=== PATIENT | female | born 1970 | race Caucasian/White ===

== ENCOUNTER 2021-01-04 23:00 | Emergency (ER) | payer OTHER ==
--- NOTE | 2021-01-05 00:45 | ED Physician Documentation ---
PD HPI CHEST PAIN - Stated complaint Stated Complaint: L SHOULDER/ARM PX - Chief complaint Chief Complaint: General - History obtained from History obtained from: Patient - History of Present Illness Timing - onset: Enter time (18:00) Timing - onset during: Rest Timing - details: Gradual onset Pain level now: 6 Quality: Sharp, Pain Location: Left shoulder/arm Improved by: Rest, Other (supporting the left shoulder) Worsened by: Exertion, Movement, Palpation Associated symptoms: No: Shortness of air, Diaphoresis, Nausea, Vomiting Similar symptoms before: Has not had sx before Recently seen: Not recently seen - Additional information Additional information: c/o left shoulder pain since 6 PM today, onset while at rest. pain is worse with movement of left shoulder as well as when it is unsupported (while standing or walking). she took aspirin and skelaxin without improvement. PD PAST MEDICAL HISTORY - Past Medical History Past Medical History: No - Past Surgical History Ortho: Rotator cuff repair (left) - Present Medications Home Medications: Ambulatory Orders Medication Instructions Recorded Confirmed Cyclobenzaprine [Flexeril] 10 mg PO TID PRN #20 tablet 01/05/21 HYDROcod/ACETAM 5/325 [Iva 5/325] 1 - 2 tablet PO Q6H PRN #14 tablet 01/05/21 - Allergies Allergies/Adverse Reactions: Allergies Allergy/AdvReac Type Severity Reaction Status Date / Time Sulfa (Sulfonamide AdvReac Unknown Verified 01/04/21 23:13 Antibiotics) - Social History Does the pt smoke?: No Smoking Status: Never smoker Does the pt drink ETOH?: No Does the pt have substance abuse?: No - POLST Patient has POLST: No PD ED PE NORMAL - Vitals Vital signs reviewed: Yes - General General: Alert and oriented X 3, No acute distress, Well developed/nourished - HEENT HEENT: Moist mucous membranes - Neck Neck: Supple, no meningeal sign - Cardiac Cardiac: RRR, No murmur, No gallop, No rub, Strong equal pulses - Respiratory Respiratory: No respiratory distress, Clear bilaterally - Abdomen Abdomen: Soft, Non tender - Derm Derm: Normal color, Warm and dry PD ED PE EXPANDED - Extremities Extremities: Tenderness (left anterior shoulder at AC joint. pain is reproduced with linear compaction pressure against flexed elbow directed up humerus towards glenohumeral joint), Motor intact, Sensory intact, Vascular intact Results - Vitals Vitals: Oxygen O2 Source Room air - EKG (time done) No standard instances Rate: Rate (enter#) (90) Rhythm: NSR [place]: Normal Intervals: Normal MI QRS: Normal Ischemia: Normal ST segments - Labs Labs: Laboratory Tests 01/05/21 01/05/21 01/05/21 01:02 01:02 01:02 WBC 10.6 RBC 4.69 Hgb 11.2 L Hct 35.8 L MCV 76.3 L MCH 23.9 L MCHC 31.3 L RDW 14.8 Plt Count 230 MPV 10.7 Neut # (Auto) 7.1 H Lymph # (Auto) 2.3 [place] # (Auto) 0.9 Eos # (Auto) 0.2 Baso # (Auto) 0.1 Absolute Nucleated RBC 0.00 Nucleated RBC % 0.0 D-Dimer Sodium 137 Potassium 4.0 Chloride 105 Carbon Dioxide 21 Anion Gap 11.0 BUN 15 Creatinine 0.7 Estimated GFR (MDRD) 89 Glucose 115 H Calcium 8.6 Total Bilirubin 0.7 AST 20 ALT 17 Alkaline Phosphatase 57 Troponin I High Sens < 2.3 L Total Protein 7.4 Albumin 4.3 Globulin 3.1 Albumin/Globulin Ratio 1.4 Lipase 45 01/05/21 01:02 WBC RBC Hgb Hct MCV MCH MCHC RDW Plt Count MPV Neut # (Auto) Lymph # (Auto) [place] # (Auto) Eos # (Auto) Baso # (Auto) Absolute Nucleated RBC Nucleated RBC % D-Dimer 209.3 Sodium Potassium Chloride Carbon Dioxide Anion Gap BUN Creatinine Estimated GFR (MDRD) Glucose Calcium Total Bilirubin AST ALT Alkaline Phosphatase Troponin I High Sens Total Protein Albumin Globulin Albumin/Globulin Ratio Lipase - Rads (name of study) chest xray Radiology: Prelim report reviewed, See rad report PD MEDICAL DECISION MAKING - ED course Complexity details: reviewed results, re-evaluated patient, considered differential, d/w patient Departure - Departure Disposition: 01 Home, Self Care Clinical Impression: Shoulder pain Condition: Good Instructions: ED Sling, ED Shoulder Pain [facility]O Prescriptions: Cyclobenzaprine [Flexeril] 10 mg PO TID PRN #20 tablet PRN Reason: Spasms HYDROcod/ACETAM 5/325 [Iva 5/325] 1 - 2 tablet PO Q6H PRN #14 tablet PRN Reason: Pain Discharge Date/Time: 01/05/21 02:46
[2021-01-05] MEDS ORDERED: MORPHINE 2 MG/ML CARPUJECT IVP STA (00:59)
[2021-01-05] MEDS ORDERED: KETOROLAC 30 MG/ML VIAL IVP STA (00:59)
[2021-01-05] MEDS ORDERED: MORPHINE 2 MG/ML CARPUJECT IM STA (01:01)
[2021-01-05] MEDS ORDERED: KETOROLAC 15 MG/ML VIAL IM STA (01:02)
[2021-01-05 01:08] LABS: BASOPHILS # (AUTO) 0.1 10^3/uL (0.0-0.1); BASOPHILS % (AUTO) 0.5 %; EOSINOPHILS # (AUTO) 0.2 10^3/uL (0.0-0.7); EOSINOPHILS % (AUTO) 1.7 %; HCT - HEMATOCRIT 35.8 % (37.0-47.0); HGB - HEMOGLOBIN 11.2 g/dL (12.0-16.0); LYMPHOCYTES # (AUTO) 2.3 10^3/uL (1.5-3.5); LYMPHOCYTES % (AUTO) 21.8 %; MEAN CORPUSCULAR HEMOGLOBIN 23.9 pg (27.0-31.0); MEAN CORPUSCULAR HGB CONC 31.3 g/dL (32.0-36.0); MEAN CORPUSCULAR VOLUME 76.3 fL (81.0-99.0); MEAN PLATELET VOLUME 10.7 fL (7.9-10.8); MONOCYTES # (AUTO) 0.9 10^3/uL (0.0-1.0); MONOCYTES % (AUTO) 8.7 %; NEUTROPHILS # (AUTO) 7.1 10^3/uL (1.5-6.6); NEUTROPHILS % (AUTO) 66.7 %; PLT - PLATELET COUNT 230 10^3/uL (130-450); RED BLOOD COUNT 4.69 10^6/uL (4.20-5.40); RED CELL DISTRIBUTION WIDTH 14.8 % (12.0-15.0); WHITE BLOOD COUNT 10.6 x10^3/uL (4.8-10.8)
[2021-01-05 01:22] LABS: ALBUMIN 4.3 g/dL (3.2-5.5); ALBUMIN/GLOBULIN RATIO 1.4 (1.0-2.2); BILIRUBIN,TOTAL 0.7 mg/dL (0.2-1.0); CALCIUM 8.6 mg/dL (8.5-10.3); CREATININE 0.7 mg/dL (0.4-1.0); TOTAL PROTEIN 7.4 g/dL (6.7-8.2)
[2021-01-05 01:24] VITALS: BP 124/79
[2021-01-05] MEDS ORDERED: IOVERSOL 320 100 ML VIAL IVP ONE (02:28)
[2021-01-05] MEDS ORDERED: CYCLOBENZAPRINE 10 MG TABLET PO STA (02:32)
[2021-01-05] MEDS ORDERED: HYDROcod/ACETAM 5/325 MG TABLET PO STA (02:32)
--- NOTE | 2021-01-05 10:50 | XRAY Report ---
PROCEDURE: Chest 2 View X-Ray INDICATIONS: chest pain TECHNIQUE: 2 view(s) of the chest. COMPARISON: None. FINDINGS: Surgical changes and devices: None. Lungs and pleura: No pleural effusions or pneumothorax. Lungs are clear. Mediastinum: Mediastinal contours are normal. Heart size is normal. Bones and chest wall: No suspicious bony abnormalities. Soft tissues appear unremarkable. IMPRESSION: No acute pulmonary process. The above findings are concordant with preliminary report. Reviewed by: Anna Fang MD on 01/05/2021 10:48 AM PDT Approved by: Anna Fang MD on 01/05/2021 10:48 AM PDT Station ID: [id number]
== END 2021-01-05 02:46 | disposition home or self-care (01) ==
LOC: ED 23:00
DX: M25.512 Pain in left shoulder (principal)
CPT/HCPCS: 36415; 71046; 80053; 83690; 84484; 85025; 85379; 93005; 96372; 99284; A9270